=== PATIENT | male | born 1985 | race Caucasian/White ===

== ENCOUNTER 2024-03-29 12:34 | Emergency (ER) | payer OTHER, SELFPAY ==
[2024-03-29] MEDS ORDERED: LIDOCAINE HCL JELLY 2% 6 ML SYRINGE TOP ONE (13:09)
[2024-03-29] MEDS ORDERED: LIDOCAINE VISCOUS 2% 10ML ORAL SOLN ONE (13:15)
--- NOTE | 2024-03-29 14:09 | EDPHYS ---
Physician Documentation [facility] Name: Jones Child Age: 38 yrs Sex: Male : 1985 Arrival Date: 03/29/2024 Time: 12:34 Bed 9 Private MD: ED Physician Darell Powell HPI: 03/29 13:23 This 38 yrs old Male presents to ER via Ambulatory with complaints of Abscess. rn 13:23 The patient presents with an abscess of the Right tonsillar. Onset: The rn symptoms/episode began/occurred. 13:23 Onset: The symptoms/episode began/occurred 3 day(s) ago. Modifying factors: the rn symptoms are alleviated by nothing, the symptoms are aggravated by nothing. Severity of symptoms: At their worst the symptoms were mild, in the emergency department the symptoms are unchanged. The patient has not experienced similar symptoms in the past. Patient reports right tonsillar abscess, has recurrent tonsillar stones and infections in the past. Took amoxicillin that he had yesterday. Came in for evaluation.. Historical: - Allergies: 12:42 No Known Allergies; tm6 - PMHx: 12:42 PTSD; ADD; tm6 - PSHx: 12:42 None; tm6 - Immunization history:: Flu vaccine is not up to date. - Infectious Disease History:: Denies. - Social history:: Smoking status: Patient reports the use of cigarette tobacco products, denies chronic smoking, but will smoke occasionally, Reported history of juuling and/or vaping. - Family history:: not pertinent. - Hospitalizations: : No recent hospitalization is reported. ROS: 13:23 Constitutional: Negative for fever, chills, and weight loss, ENT: Positive for rn tonsillar abscess and swelling Exam: 13:23 Constitutional: This is a well developed, well nourished patient who is awake, alert, rn and in no acute distress. ENT: 1 cm right tonsillar abscess. No evidence of peritonsillar abscess. Uvula midline. No stridor. Vital Signs: 12:40 Temp 98.5(O); tm6 12:40 BP 124 / 68; Pulse 63; Resp 16; Pulse Ox 100% on R/A; MAP 86 mmHg; Weight 63.5 kg; tm6 Height 5 ft. 10 in. ; Pain 2/10; 12:40 Body Mass Index 20.09 (63.50 kg, 177.8 cm) tm6 12:40 Pain Scale: Adult tm6 Procedures: 14:08 I \T\ D: Incision and drainage was performed for an abscess of the right Tonsil rn Anesthetized with Viscous lidocaine. Incised with 18-gauge needle and syringe used for aspiration. Drained small amount purulent fluid. the patient tolerated the procedure well. MDM: 12:43 Medical Screening Exam initiated rn 14:08 Differential diagnosis: abscess. Data reviewed: vital signs, nurses notes, and as a rn result, I will discharge patient. 14:08 Counseling: I had a detailed discussion with the patient and/or guardian regarding the rn historical points, exam findings, and any diagnostic results supporting the discharge/admit diagnosis, the need for outpatient follow up, to return to the emergency department if symptoms worsen or persist or if there are any questions or concerns that arise at home. Response to treatment: the patient's symptoms have markedly improved after treatment, and as a result, I will discharge patient. Administered Medications: 13:10 Not Given (Other Intervention Used): viscous lidocaineliquid (4 %) 5 ml Mucous Membrane ss once 13:12 Not Given (Other Intervention Used): lidocainegel 2 % 1 application Mucous Membrane ss once; to abscess 13:17 Drug: Viscous Lidocaine Mucous Membrane Liquid (4 %) 5 ml Mucous Membrane once Route: ss Mucous Membrane; Disposition Summary: 03/29/24 14:09 Discharge Ordered Notes: Location: Home rn Problem: new rn Symptoms: have improved rn Condition: Stable rn Diagnosis - Tonsillar abscess rn Followup: rn - With: Private Physician - When: As needed - Reason: Recheck today's complaints, Re-evaluation by your physician Discharge Instructions: - Discharge Summary Sheet rn - Peritonsillar Abscess rn Forms: - Medication Reconciliation Form rn - Antibiotic commercial intern - Prescription Opioid Use rn - Patient Portal Instructions rn - Leadership Thank You Letter rn Prescriptions: - Augmentin 875-125 mg Oral Tablet - take 1 tablet ORAL route every 12 hours for 10 days; 20 tablet; Refills: 0, rn Product Selection Permitted - Clindamycin HCl 300 mg Oral Capsule - take 1 capsule ORAL route every 6 hours for 10 days; 40 capsule; Refills: 0, rn Product Selection Permitted Signatures: Powell, Darell, MD MD rn Whitfield, Jennifer, RN RN ss Debbie, Tawney, RN RN tm6
--- NOTE | 2024-03-29 14:09 | ER ---
Nurse's Notes [facility] Name: Jones Child Age: 38 yrs Sex: Male : 1985 Arrival Date: 03/29/2024 Time: 12:34 Bed 9 Private MD: Diagnosis: Tonsillar abscess Presentation: 03/29 12:41 Chief complaint: Patient states: tonsil abscess started 3 days ago. It is large and tm6 feels like I have something stuck back there. Coronavirus screen: Client denies travel out of the [place] in the last 14 days. Ebola Screen: Patient negative for fever greater than or equal to 101.5 degrees Fahrenheit, and additional compatible Ebola Virus Disease symptoms Patient denies exposure to infectious person. Patient denies travel to an Ebola-affected area in the 21 days before illness onset. No symptoms or risks identified at this time. Initial Sepsis Screen: Does the patient meet any 2 criteria? No. Patient's initial sepsis screen is negative. Does the patient have a suspected source of infection? No. Patient's initial sepsis screen is negative. Risk Assessment: Do you want to hurt yourself or someone else? Patient reports no desire to harm self or others. Onset of symptoms was March 26, 2024. 12:41 Method Of Arrival: Ambulatory tm6 12:41 Acuity: SASCHA 4 tm6 Triage Assessment: 12:42 General: Appears in no apparent distress. Behavior is calm, cooperative. Pain: Denies tm6 pain. EENT: Reports difficulty swallowing since x3 days. EENT: Throat is reddened has enlarged tonsils Reports. Neuro: Level of Consciousness is awake, alert, obeys commands, Oriented to person, place, time, situation. Cardiovascular: Patient's skin is warm and dry. Respiratory: Airway is patent Respiratory effort is even, unlabored, Respiratory pattern is regular, symmetrical. GI: No signs and/or symptoms were reported involving the gastrointestinal system. Abdomen is flat, non-distended. : No signs and/or symptoms were reported regarding the genitourinary system. Derm: No signs and/or symptoms reported regarding the dermatologic system. Musculoskeletal: No signs and/or symptoms reported regarding the musculoskeletal system. Historical: - Allergies: 12:42 No Known Allergies; tm6 - PMHx: 12:42 PTSD; ADD; tm6 - PSHx: 12:42 None; tm6 - Immunization history:: Flu vaccine is not up to date. - Infectious Disease History:: Denies. - Social history:: Smoking status: Patient reports the use of cigarette tobacco products, denies chronic smoking, but will smoke occasionally, Reported history of juuling and/or vaping. - Family history:: not pertinent. - Hospitalizations: : No recent hospitalization is reported. Screenin:18 Abuse screen: Denies threats or abuse. Denies injuries from another. Nutritional ss screening: No deficits noted. Tuberculosis screening: Never had TB. Assessment: 14:18 Reassessment: Patient appears in no apparent distress at this time. Patient states ss feeling better. Patient states symptoms have improved. Vital Signs: 12:40 Temp 98.5(O); tm6 12:40 BP 124 / 68; Pulse 63; Resp 16; Pulse Ox 100% on R/A; MAP 86 mmHg; Weight 63.5 kg; tm6 Height 5 ft. 10 in. ; Pain 2/10; 12:40 Body Mass Index 20.09 (63.50 kg, 177.8 cm) tm6 12:40 Pain Scale: Adult tm6 ED Course: 12:37 Patient arrived in ED. sj2 12:42 Triage completed. tm6 12:42 Arm band placed on left wrist. tm6 12:43 Darell Powell MD is Attending Physician. rn 13:08 Jennifer Whitfield RN is Primary Nurse. ss 14:18 Patient has correct armband on for positive identification. ss 14:18 Provided Education on: Procedure Consent. ss 14:18 No provider procedures requiring assistance completed. Patient did not have IV access ss during this emergency room visit. Administered Medications: 13:10 Not Given (Other Intervention Used): viscous lidocaineliquid (4 %) 5 ml Mucous Membrane ss once 13:12 Not Given (Other Intervention Used): lidocainegel 2 % 1 application Mucous Membrane ss once; to abscess 13:17 Drug: Viscous Lidocaine Mucous Membrane Liquid (4 %) 5 ml Mucous Membrane once Route: ss Mucous Membrane; Medication: 14:18 VIS not applicable for this client. ss Outcome: 14:09 Discharge ordered by . rn 14:18 Discharged to home ambulatory, with family, ss 14:18 Condition: good 14:18 Discharge instructions given to patient, family, Instructed on discharge instructions, follow up and referral plans. medication usage, Demonstrated understanding of instructions, follow-up care, medications, Prescriptions given X 2, 14:20 Patient left the ED. Signatures: Darell Powell MD MD rn Blanchard, Shelby, RN RN ss Masterson, Tawney, RN RN tm6 Brian Gay [facility]
[2024-03-29 14:47] VITALS: BP 124/68; TEMP 98.5; O2SAT 100
== END 2024-03-29 14:20 | disposition home or self-care (01) ==
LOC: ER 12:34
PROC: 0C9PXZZ Drainage of Tonsils, External Approach (ICD-10-PCS; principal; 2024-03-29)
DX: J36 Peritonsillar abscess (principal)
CPT/HCPCS: 99283